=== PATIENT | male | born 1960 | race Caucasian/White ===

== ENCOUNTER 2019-05-18 | Emergency (ER) | payer OTHER ==
[2019-05-18] MEDS ORDERED: LOSARTAN POTASS50 MG PO (10:04)
[2019-05-18] MEDS ORDERED: MOTRIN400 MG PO (10:12)
== END 2019-05-18 10:18 | disposition home or self-care (01) | DRG 556 ==
DX: M25.512 Pain in left shoulder (principal); I10 Essential (primary) hypertension; W17.89XA Other fall from one level to another, initial encounter; Y93.89 Activity, other specified; Y92.89 Other specified places as the place of occurrence of the external cause; Y99.0 Civilian activity done for income or pay

== ENCOUNTER 2024-04-08 17:07 | Emergency (ER) | payer SELFPAY ==
[2024-04-08] VITALS (15 sets, daily range): BP systolic 146–178; BP diastolic 90–103
[~2024-04-08] VITALS: Ht 185.4 cm; Wt 110.0 kg
[~2024-04-08 17:07] MED LIST: LIDOCAINE HCL 2% 2ML SDV IV ONE; LOSARTAN POTASS50 MG PO; MOTRIN400 MG PO; PROPOFOL 200 MG/20 ML VIAL IV ONE
[2024-04-08] MEDS ORDERED: MORPHINE SULFATE 4 MG/ML VIAL IV ONE (17:20)
[2024-04-08] MEDS ORDERED: ONDANSETRON HCl 4 MG/2 ML SDV IV ONE (17:20)
[2024-04-08] MEDS ORDERED: Diph, Acellular Pertussis, Tet 0.5 ML/VIAL (Tdap) SDV IM ONE (17:20)
[2024-04-08 17:45] LABS: BASO% 0.4 % (0-3); EOS% 3.3 % (0-8); HEMATOCRIT 44.9 % (39.0-50.0); HEMOGLOBIN 15.2 g/dl (14.0-18.0); IMMATURE GRANULOCYTES 0.2 % (0.0-5.0); MEAN CORPUSCULAR HGB 32.8 pG CALC (26.0-32.0); MEAN CORPUSCULAR HGB CONC 33.9 g/dL CAL (32.0-36.0); MONO% 11.1 % (2-13); NEUT# 5.01 thou/uL (1.82-7.42); RED BLOOD COUNT 4.63 mill/uL (4.70-6.10); RED CELL DISTRI WIDTH 12.2 % (11.5-15.5)
[2024-04-08] MEDS ORDERED: LIDOcaine HCl 1% (Local Anesth.) 20 ML VIAL STI STA (17:47)
[2024-04-08] MEDS ORDERED: POVIDONE IODINE 0.5 OZ/BTL TOP ONE (17:50)
[2024-04-08 17:53] LABS: ALBUMIN 4.6 g/dL (3.2-5.0); ALKALINE PHOSPHATASE 99 u/l (38-126); ANION GAP 17 (6-22 (CALC)); BUN 11 mg/dL (8-23); BUN/CREATININE RATIO 11 (12-20 (CALC)); CARBON DIOXIDE 19 mmol/l (22-30); CHLORIDE 107 mmol/l (95-108); ESTIMATED GFR 85 ML/MIN (>=90 (CALC)); POTASSIUM 3.8 mmol/l (3.5-5.1); SGOT/AST 79 u/l (19-48); SODIUM 139 mmol/l (137-146); TOTAL PROTEIN 7.7 g/dL (6.3-8.2)
[2024-04-08 17:57] LABS: BILIRUBIN, TOTAL 0.6 mg/dL (0.2-1.3)
[2024-04-08] MEDS ORDERED: HYDROmorphone HCL 2 MG/AMP IV ONE (18:15)
[2024-04-08] MEDS ORDERED: ACETAMINOPHEN 1,000 MG/100 ML VIAL IV ONE (18:30)
[2024-04-08] MEDS ORDERED: SODIUM CHLORIDE 0.9% 1,000 ML IV ONE (18:50)
[2024-04-08] MEDS ORDERED: ceFAZolin Sodium 1 GM in SODIUM CHLORIDE 0.9% 50 ML IV ONE (19:30)
[2024-04-08] MEDS ORDERED: oxyCODONE 5MG/ ACETAMINOPHEN 325MG TAB PO ONE (19:30)
[2024-04-08] MEDS ORDERED: PERCOCET 10/31 COMBO PO (19:32)
[2024-04-08] MEDS ORDERED: oxyCODONE 10MG/APAP 325 MG 1 COMBO TAB PO ONE ×2 (19:35→20:10)
== END 2024-04-08 20:20 | disposition home or self-care (01) | DRG 563 ==
LOC: ED 17:07
PROVIDERS: Family Medicine
PROC: 0HQ1XZZ Repair Face Skin, External Approach (ICD-10-PCS; principal; 2024-04-08)
PROC: 0PSJXZZ Reposition Left Radius, External Approach (ICD-10-PCS; 2024-04-08)
DX: S52.502A Unspecified fracture of the lower end of left radius, initial encounter for closed fracture (principal); S01.112A Laceration without foreign body of left eyelid and periocular area, initial encounter; M25.512 Pain in left shoulder; R07.89 Other chest pain; M25.552 Pain in left hip; I10 Essential (primary) hypertension; E66.01 Morbid (severe) obesity due to excess calories; W11.XXXA Fall on and from ladder, initial encounter; Y92.009 Unspecified place in unspecified non-institutional (private) residence as the place of occurrence of the external cause; Z72.0 Tobacco use
CPT/HCPCS: 90715; J0131; J0690; J1171; J2405; Q9967